=== PATIENT | female | born 1990 | race Hispanic/Latino ===

== ENCOUNTER → 2023-12-23 11:53 | Outpatient (REF) | payer OTHER, SELFPAY ==
[2023-12-23 14:26] LABS: HDL Cholesterol 43 mg/dl; LDL Cholesterol, Calculated 171 mg/dl; Total Cholesterol 250 mg/dl (50-199); Triglyceride 182 mg/dl (10-149); Very Low Density Lipoprotein 36 mg/dl (0-30)
[2023-12-23 14:43] LABS: Vitamin D, 25-OH*** 40.2 ng/mL (30-80)
== END ==
LOC: REG 11:53
PROVIDERS: ATTENDING PHYSICIAN Nurse Practitioner Adult Health
DX: E55.9 Vitamin D deficiency, unspecified (principal); E78.2 Mixed hyperlipidemia
CPT/HCPCS: 36415; 80061; 82306